=== PATIENT | male | born 1980 | race Caucasian/White ===

== ENCOUNTER 2017-03-23 11:00 | Emergency (ER) | payer OTHER ==
[2017-03-23 11:32] VITALS: BP 139/85; PULSE 108; RESP 18; TEMP 98.5
--- NOTE | 2017-03-23 12:14 | ED ---
General Adult HPI - General Chief complaint: Dental/Oral Stated complaint: dental pain Time Seen by Provider: 03/23/17 12:05 Source: patient, RN notes reviewed Mode of arrival: ambulatory Limitations: no limitations - History of Present Illness Initial comments: 36-year-old male presents to the emergency department with a chief complaint of right-sided dental pain. Patient states that he was eating yesterday in his tooth cracked. Patient states he has a history of dental problems and is having a dentist but he is currently visiting family up here for the holidays. Patient states he hasn't had a fever chills. No difficulty opening or closing the mouth. Nausea or vomiting. No pain radiating to the neck. He states that he's been taking ibuprofen without much improvement to his symptoms. They were concerned due to the continued pain so he thought that he should be evaluated. He states that he goes home he can make a dentist appointment.Patient denies any recent fever, chills, shortness of breath, chest pain, back pain, abdominal pain, nausea vomiting, numbness or tingling, dysuria or hematuria, constipation or diarrhea, headaches or visual changes, or any other current symptoms. - Related Data Previous Rx's Medication Instructions Recorded Penicillin V Potassium [Pen Vee K] 500 mg PO QID 7 Days tablet 03/23/17 traMADol HCl [Ultram] 50 mg PO Q6H PRN #20 tab 03/23/17 Allergies Allergy/AdvReac Type Severity Reaction Status Date / Time No Known Allergies Allergy Verified 03/23/17 11:32 Review of Systems ROS Statement: Those systems with pertinent positive or pertinent negative responses have been documented in the HPI. ROS Other: All systems not noted in ROS Statement are negative. Past Medical History Additional Past Medical History / Comment(s): kidney stones History of Any Multi-Drug Resistant Organisms: MRSA Date of last positivie culture/infection: 2012 MDRO Source:: buttocks Additional Past Surgical History / Comment(s): lithotripsy Past Psychological History: No Psychological Hx Reported Smoking Status: Never smoker Past Alcohol Use History: None Reported Past Drug Use History: None Reported General Exam Limitations: no limitations General appearance: alert, in no apparent distress Head exam: Present: atraumatic, normocephalic, normal inspection ENT exam: Present: normal exam, mucous membranes moist, other (fracture tooth number number 2, no visible abscess) Neck exam: Present: normal inspection. Absent: tenderness, meningismus, lymphadenopathy Respiratory exam: Present: normal lung sounds bilaterally. Absent: respiratory distress, wheezes, rales, rhonchi, stridor Cardiovascular Exam: Present: regular rate, normal rhythm, normal heart sounds. Absent: systolic murmur, diastolic murmur, rubs, gallop, clicks Neurological exam: Present: alert, oriented X3 Psychiatric exam: Present: normal affect, normal mood Skin exam: Present: warm, dry, intact, normal color. Absent: rash Course Vital Signs 03/23/17 11:28 Temperature 98.5 F Pulse Rate 108 H Respiratory 18 Rate Blood Pressure 139/85 O2 Sat by Pulse 96 Oximetry Medical Decision Making - Medical Decision Making 36-year-old male presents emergency 5 chief complaint of right-sided dental pain. we will start patient on pain medication and antibiotics. We discussed follow-up with his dentist. We discussed return parameters all questions. Patient stated he understood and he is here with this plan. All questions have been answered. Patient will be discharged home. Disposition Clinical Impression: Fracture of tooth Disposition: HOME SELF-CARE Condition: Stable Instructions: Toothache (ED) Additional Instructions: Please use medication as discussed. Please follow up with family doctor if symptoms have not improved over the next two days. Please return to the emergency room if your symptoms increase or worsen or for any other concerns. [facility] [id number] [place] [address] [phone] (existing clients only) For new clients: [phone] 1st consult: $50 (includes Xrays) Usually 30% less then private dentist for visits after. [employer] [facility] [employer] Have to pay $50 for Xrays anmd rest is covered. [phone] Prescriptions: Penicillin V Potassium [Pen Vee K] 500 mg PO QID 7 Days tablet traMADol HCl [Ultram] 50 mg PO Q6H PRN #20 tab PRN Reason: Pain Referrals: Olinda Lyle MD [STAFF PHYSICIAN] - 1-2 days Time of Disposition: 12:14
== END 2017-03-23 12:28 | disposition home or self-care (01) ==
LOC: EC 11:00
DX: S02.5XXA Fracture of tooth (traumatic), initial encounter for closed fracture (principal); Z86.14 Personal history of Methicillin resistant Staphylococcus aureus infection; X58.XXXA Exposure to other specified factors, initial encounter
CPT/HCPCS: 99282

== ENCOUNTER 2019-08-21 12:17 | Observation (INO) | payer OTHER ==
[2019-08-21] MEDS ORDERED: DIPH,PERTUS(ACELL)TETVAC-LF 0.5 ML VIAL IM ONE (12:30)
--- NOTE | 2019-08-21 12:47 | XR ---
EXAMINATION TYPE: XR tibia fibula LT DATE OF EXAM: 08/21/2019 CLINICAL HISTORY: Left lower extremity laceration and pain TECHNIQUE: Two views of the left leg are obtained. COMPARISON: None. FINDINGS: There is no acute fracture or dislocation seen in the left tibia or fibula. The left knee and ankle joints appear within normal limits. Soft tissue laceration is seen of the posterior medial left lower extremity subcutaneous tissues. No radiopaque foreign body. This is seen at approximately the mid shaft of the left tibia. No osseous laceration. IMPRESSION: Soft tissue laceration of the posterior medial left lower extremity without radiopaque fo reign body seen. No osseous laceration. There is no acute fracture or dislocation seen in the left t ibia or fibula.
[2019-08-21] MEDS ORDERED: HYDROmorphone 0.5 MG/0.5 ML SYRINGE IM STA (13:14)
[2019-08-21] MEDS: LIDOCAINE 1% INJ 10MG/ML (20 ML MDV) SQ ONE ×2 (13:36→15:22)
[2019-08-21] MEDS ORDERED: NALOXONE 0.4 MG/ML 1 ML VIAL IV PRN (13:59)
--- NOTE | 2019-08-21 13:59 | ED ---
Wound/Laceration HPI - General Source: patient Mode of arrival: ambulatory Limitations: no limitations <Ewelina Carmona - Last Filed: 08/21/19 14:17> <Rowan Plascencia - Last Filed: 08/24/19 23:49> - General Chief Complaint: Wound/Laceration Stated Complaint: lt leg lac Time Seen by Provider: 08/21/19 12:19 - History of Present Illness Initial Comments: 38yo male with history of controlled HTN presents today for chief complaint of left leg laceration. Patient states he was swimming in the [place] when he cut his leg on an unknown object. Patietn states that when he arouse from the water he saw a very large laceration, with exposure of what he thought was bone or muscle. Patient denies any loss of sensation: As or pallor of the extremity. Patient states she feels still able to plantar and dorsiflex his foot. Patient denies any other areas of injury patient's unsure of his last tetanus remote any persistent negative upon arrival patient was ambulatory (Ewelina Carmona) - Related Data Home Medications Medication Instructions Recorded Confirmed Metoprolol Succinate (ER) [Toprol 100 mg PO DAILY 08/21/19 08/21/19 Xl] Previous Rx's Medication Instructions Recorded Amoxicillin/Potassium Clav 1 tab PO Q12HR 10 Days #20 tab 08/21/19 [Augmentin 875-125 Tablet] HYDROcodone/APAP 5-325MG [[place] 1 - 2 tab PO Q6HR PRN #30 tab 08/21/19 5-325] Allergies Allergy/AdvReac Type Severity Reaction Status Date / Time No Known Allergies Allergy Verified 08/21/19 14:23 Review of Systems ROS Other: All systems not noted in ROS Statement are negative. <Ewelina Carmona - Last Filed: 08/21/19 14:17> ROS Other: All systems not noted in ROS Statement are negative. <Rowan Plascencia - Last Filed: 08/24/19 23:49> ROS Statement: Those systems with pertinent positive or pertinent negative responses have been documented in the HPI. Past Medical History Past Medical History: Hypertension Additional Past Medical History / Comment(s): kidney stones History of Any Multi-Drug Resistant Organisms: MRSA Date of last positivie culture/infection: 2012 MDRO Source:: buttocks Past Surgical History: No Surgical Hx Reported Additional Past Surgical History / Comment(s): lithotripsy Past Psychological History: No Psychological Hx Reported Smoking Status: Never smoker Past Alcohol Use History: None Reported Past Drug Use History: Marijuana <Ewelina Carmona - Last Filed: 08/21/19 14:17> General Exam Limitations: no limitations <Ewelina Carmona - Last Filed: 08/21/19 14:17> - General Exam Comments Initial Comments: General: The patient is awake and alert, in no distress Eye: Pupils are equal, round and reactive to light, extra-ocular movements are intact. No nystagmus. There is normal conjunctiva bilaterally. No signs of icterus. Cardiovascular: There is a regular rate and rhythm. No murmur, rub or gallop is appreciated. Respiratory: Lungs are clear to auscultation, respirations are non-labored, breath sounds are equal. No wheezes, stridor, rales, or rhonchi. Musculoskeletal: Upon inspection of the medial aspect of the left calf there is a 10 cm U-shaped laceration with laceration into the muscle belly through the fascia exposure of adipose no exposure of tendon or bone noted. No evidence of foreign body upon exploration. Normal ROM, of the foot/ankle with pain at laceration site. Strength 5/5 with plantar and dorsal flexion. Sensation intact. DP pulses equal bilaterally 2+. Neurological: A&O x 3. CN II-XII intact grossly, There are no obvious motor or sensory deficits. Coordination appears grossly intact. Speech is normal. Skin: Skin is warm and dry and no rashes or lesions are noted. Psychiatric: Cooperative, appropriate mood & affect, normal judgment. (Ewelina Carmona) Course Vital Signs 08/21/19 08/21/19 12:19 14:32 Temperature 97.6 F Pulse Rate 89 64 Respiratory 18 18 Rate Blood Pressure 139/92 149/84 O2 Sat by Pulse 93 L 98 Oximetry Medical Decision Making <Ewelina Carmona - Last Filed: 08/21/19 14:17> - Lab Data Result diagrams: 08/21/19 16:06 08/21/19 16:06 <Rowan Plascencia - Last Filed: 08/24/19 23:49> - Medical Decision Making 38yo male presenting for left leg laceration just prior to arrival. Given extent and the area where the wound was obtained with concern for contamination patient will be admitted for surgical wash out and closure. Patient tetanus updated in the ER. Last meal small 9:30AM. Patinet is agreeable to this procedure. Given IV analgesics. Dr. Pressley accepted patient, I spoke with PARoshni C/s Brianna. Shared photo of laceration with patient permission. Temo Elizondo agreeable to this care plan. (Ewelina Carmona) I was available for consultation in the emergency department. The history and physical exam were done by the midlevel provider. I was consulted for this patients care. I reviewed the case with the midlevel provider and based on their presentation of the patient, I agree with the assessment, medical decision making and plan of care as documented. Chart was dictated using [employer] dictation software. Attempts were made to correct any dictation errors however some typographical errors may persist. Patient was seen during a national state of emergency due to the Covid-19 pandemic. (Rowan Plascencia) Disposition Is patient prescribed a controlled substance at d/c from ED?: No Time of Disposition: 13:57 Decision to Admit Reason: Admit from EC Decision Date: 08/21/19 Decision Time: 13:58 <Ewelina Carmona - Last Filed: 08/21/19 14:17> <Rowan Plascencia - Last Filed: 08/24/19 23:49> Clinical Impression: Laceration of left leg, Muscle laceration Disposition: HOME SELF-CARE Condition: Good
[2019-08-21] MEDS ORDERED: SODIUM CHLORIDE 0.9% 1,000 ML IV SCH (14:00)
[2019-08-21 15:56] VITALS: RESP 16
[2019-08-21] MEDS ORDERED: HYDROmorphone 0.5 MG/0.5 ML SYRINGE IVP PRN (16:02)
--- NOTE | 2019-08-21 16:18 | P.HPOR ---
History of Present Illness H&P Date: 08/21/19 This patient is a 38- year old male with a past medical history of hypertension that presented to [facility] emergency department earlier today with complaints of a left leg laceration. The patient states he was fishing in [place] with his son, when [place] about [place]. He states he got out of the river and noticed a very large laceration to his left calf. He states he did not feel pain and did not feel being cut. He states he cut his leg on an unknown object. He states he immediately presented to [facility] emergency department for evaluation. On presentation to the emergency department, x-rays of the left tibia and fibula revealed no foreign bodies or acute fractures. The patient's tetanus was updated. The patient was admitted under the care of Dr. Pressley for surgical irrigation and debridement and closure of the wound. Patient last ate at 0930. The patient is evaluated bedside in the emergency department. The patient states he is currently experiencing isolated mild pain in the left lower leg. He states any pain of the left lower leg is excruciating. He states he is not feeling pain in any other areas. He denies numbness or tingling of the left lower extremity. He denies weakness of the left lower extremity. He denies history of neuropathy. He denies history of diabetes. He states he is a nonsmoker. Patient denies chest pain, shortness breath, nausea, vomiting, fevers, chills. Patient states he does feel anxious about being in the hospital, otherwise he feels well. Vital signs stable. Past Medical History Past Medical History: Hypertension Additional Past Medical History / Comment(s): kidney stones History of Any Multi-Drug Resistant Organisms: MRSA Date of last positivie culture/infection: 2012 MDRO Source:: buttocks Past Surgical History: No Surgical Hx Reported Additional Past Surgical History / Comment(s): lithotripsy Past Psychological History: No Psychological Hx Reported Smoking Status: Never smoker Past Alcohol Use History: None Reported Past Drug Use History: Marijuana - Past Family History Mother Family Medical History: Hypertension Father Family Medical History: No Reported History Medications and Allergies Home Medications Medication Instructions Recorded Confirmed Type Metoprolol Succinate (ER) [Toprol 100 mg PO DAILY 08/21/19 08/21/19 History Xl] Allergies Allergy/AdvReac Type Severity Reaction Status Date / Time No Known Allergies Allergy Verified 08/21/19 14:23 Physical Examination On examination, the patient is sitting up in bed in no apparent distress. He is alert and oriented 3. His head appears normocephalic and atraumatic. His breathing appears nonlabored. On inspection of the bilateral upper extremities, there are no obvious deformities or signs of trauma. On inspection of the right lower extremity, there are no obvious deformities or signs of trauma. On inspection of the left lower extremity, there is a roughly 10 cm U-shaped laceration to the posteriomedial calf with exposed muscle and subcutaneous fat. No exposed bone. The left calf is very painful to palpation. The Achilles tendon is intact. Patient has full dorsiflexion and plantar flexion of the ankle. Dorsalis pedis pulse +2. The left lower extremity is warm and well perfused. Sensation is intact to light touch of the dorsal and plantar foot, as well as the first dorsal webspace. Vital signs stable. Results Left tibia and fibula x-ray 08/21/19: No acute fractures, no foreign bodies. Soft tissue disruption posteriomedial calf. Assessment and Plan Assessment: Traumatic laceration, left posteriomedial calf Plan: - The clinical findings were discussed with the patient. The patient was di scussed in detail with Dr. Pressley. A formal irrigation and debridement, wound exploration, and closure in the operating room is recommended. The patient will be admitted and be made NPO, with plans for operating room later this afternoon. The patient gave his verbal consent for this procedure. - NPO diet. - Dilaudid as needed for pain control. - Strict non-weight bearing on left leg. - We will plan to keep the patient overnight following the procedure, so he is able to receive two doses of post-operative antibiotics.
[2019-08-21 16:46] LABS: Basophils % (A) 0 %; Eosinophils % (A) 0 %; HCT 46.8 % (39.0-53.0); HGB 15.6 gm/dL (13.0-17.5); Lymphocytes # (A) 2.2 k/uL (1.0-4.8); Lymphocytes % (A) 16 %; MCHC 33.3 g/dL (31.0-37.0); MCV 86.9 fL (80.0-100.0); Mean Platelet Volume 8.8; Monocytes # (A) 0.5 k/uL (0-1.0); Monocytes % (A) 4 %; Neutrophils # (A) 10.4 k/uL (1.3-7.7); Neutrophils % (A) 78 %; Platelet Count 243 k/uL (150-450); RBC 5.38 m/uL (4.30-5.90); WBC 13.4 k/uL (3.8-10.6)
[2019-08-21 16:54] LABS: Partial Thromboplastin Time 22.9 sec (22.0-30.0); Prothrombin Time 10.6 sec (9.0-12.0)
[2019-08-21 16:57] LABS: African American GFR (CKD) >90 (>60 ml/min/1.73 sqM); Anion Gap 10 mmol/L; Blood Urea Nitrogen 9 mg/dL (9-20); Calcium 9.6 mg/dL (8.4-10.2); Carbon Dioxide 25 mmol/L (22-30); Chloride 103 mmol/L (98-107); Glucose 92 mg/dL (74-99); Non-African American GFR(CKD) >90 (>60 ml/min/1.73 sqM); Potassium 4.4 mmol/L (3.5-5.1); Sodium 138 mmol/L (137-145)
[2019-08-21] MEDS ORDERED: KETOROLAC 30 MG/ML 1 ML VIAL ONE (19:07)
[2019-08-21] MEDS ORDERED: fentaNYL (PF) 50 MCG/ML 2 ML AMP ONE (19:07)
[2019-08-21] MEDS ORDERED: ONDANSETRON 4 MG/2 ML VIAL ONE (19:07)
[2019-08-21] MEDS ORDERED: PROPOFOL 10 MG/ML 20 ML VIAL IV ONE (19:07)
[2019-08-21] MEDS ORDERED: LIDOCAINE 1% INJ 10MG/ML (20 ML MDV) ONE (19:07)
[2019-08-21] MEDS ORDERED: MIDAZOLAM 2 MG/2 ML VIAL ONE (19:07)
[2019-08-21] MEDS ORDERED: SODIUM CHLORIDE 0.9% 1,000 ML IV ONE (19:07)
[2019-08-21] MEDS ORDERED: ceFAZolin 1,000 MG VIAL IVPB ONE (19:23)
[2019-08-21] MEDS ORDERED: ceFAZolin 3,000 MG in SODIUM CHLORIDE 0.9% IRRIGATIO 3,000 ML IRRIGATION ONE (19:30)
[2019-08-21] MEDS ORDERED: LACTATED RINGERS 1,000 ML IV ONE (19:35)
--- NOTE | 2019-08-21 20:17 | P.OP ---
Date of Procedure: 08/21/19 Preoperative Diagnosis: Complex left calf wound with 6 cm transverse limb and 4.5 cm longitudinal limb Postoperative Diagnosis: Same Procedure(s) Performed: 1. Irrigation and debridement of left calf wound (excisional debridement with a scalpel was performed of nonviable skin and subcutaneous tissue down to muscle) 2. Closure of complex calf wound measuring 10.5 cm Anesthesia: HANS Surgeon: Randy Pressley IV fluids (ml): 25 Pathology: none sent Condition: stable Disposition: PACU Indications for Procedure: The patient is very pleasant previously healthy 38-year-old male who was playing with his son [place] the [place] when he cut his left calf. His calf was completely submerged in water. He was brought to the emergency department where evaluation of the wound and x-rays were performed. Orthopedics was consulted for formal debridement and closure in the operating room. I met with the patient preoperatively to discuss risks and complications of surgery including but certainly not limited to risk of anesthesia, superficial infection, deep infection, damage to local blood vessels or nerves, dehiscence, DVT, PE, other medical complications, need for further surgery, possibly loss of life or limb. Operative Findings: There was a complex laceration over the posterior medial aspect of the calf with a large flap with a 4.5 cm longitudinal limb and a 6 cm horizontal limb. The wound tracked down to the medial muscle belly of the gastrocnemius. There is minimal deep contamination Description of Procedure: The patient was identified in preoperative holding and the correct left leg was marked my initials. I reviewed the consent with the patient HIS questions were answered. The patient was then brought back to the operating room. He was positioned on the OR table where a general anesthetic and preoperative antibiotics were given. A bump was placed under the right buttock to facilitate imaging of the left posterior medial calf. A tourniquet was applied to the proximal aspect of the left leg but was not used. The left leg was then prepped and draped in the standard sterile fashion. Prior to starting surgery timeout was performed identifying the correct patient, operative extremity, and procedure. I began by thoroughly exploring the wound. There is a large flap with a 6 cm horizontal limb and a 4.5 cm vertical limb. The apex of the flap was oriented distally. The wound violated the superficial fascia and there was a small traumatic laceration of the gastrocnemius muscle belly. There was minimal dirt and debris in the wound which was debrided using a pickup. A scalpel was used to debride nonviable skin, subcutaneous tissue, and fascia down to the gastrocnemius muscle belly. The wound was then thoroughly irrigated using 3 L of sterile saline and pulsatile lavage. The wound was found to be clean. The fascia was closed with a [id number] 0 Vicryl. The deep subcu was reapproximated using 2-0 Vicryl. The skin was closed using 3-0 nylon Gallo mcarthur odification of the Donati stitch. All instrument, sponge, and sharp counts were correct. A sterile dressing consisting of Betadine soaked Adaptic, 4 x 4, and web roll was applied. The patient was awoken from his anesthetic, transferred from the OR table to a rney, and brought to recovery having tolerated the procedure well. Plan: The patient can discharge home as an outpatient. He can weight-bear as tolerated on his left leg. He should leave his dressing on for 2 days and can then remove his dressing and get the wound wet in the shower. Due to the wound being completely submerged in the [place] he'll be discharged home on a 10 day course of Augmentin. I would like to see him early next week for a wound check.
[2019-08-21 21:35] VITALS: BP 146/99; PULSE 93; TEMP 97.6
== END 2019-08-21 21:47 | disposition home or self-care (01) ==
LOC: EC 12:17 → 4SSUR 14:11
PROVIDERS: ADMIT Orthopaedic Surgery; ATTEND Orthopaedic Surgery
DX: S81.812A Laceration without foreign body, left lower leg, initial encounter (principal); W45.8XXA Other foreign body or object entering through skin, initial encounter; I10 Essential (primary) hypertension; Z87.442 Personal history of urinary calculi; Z86.14 Personal history of Methicillin resistant Staphylococcus aureus infection; Z79.899 Other long term (current) drug therapy; Z98.890 Other specified postprocedural states
CPT/HCPCS: 90471; 96374; 99284; 80048; 85025; 85610; 85730; 87635; 73590; 90715; 13121; 13122; G0378; J2250; J2405; J0690; J2001; J3010; J1885; J2704; J1170